=== PATIENT | female | born 1990 | race Caucasian/White ===

== ENCOUNTER 2024-10-30 09:10 | Emergency (ER) | payer SELFPAY ==
[~2024-10-30] VITALS: Ht 162.6 cm; Wt 78.2 kg
[2024-10-30] MEDS ORDERED: LAMOTRIGINE150 MG (09:43)
[2024-10-30] MEDS ORDERED: LEXAPRO10 MG PO (09:43)
[2024-10-30] MEDS ORDERED: PROPRANOLOL HCL10 MG PO (09:43)
[2024-10-30] MEDS: IBUPROFEN 200 MG TAB PO ONE (10:16)
[2024-10-30] MEDS: ACETAMINOPHEN 325 MG TAB PO ONE (10:17)
[2024-10-30] MEDS ORDERED: THERAFLU COLD1 EAC4 PO (10:38)
[2024-10-30] MEDS ORDERED: CEFDINIR300 MG PO (10:38)
[2024-10-30] MEDS ORDERED: IBUPROFEN600 MG PO (10:38)
[2024-10-30 10:56] VITALS: PULSE 81; RESP 18; TEMP 98.2; O2SAT 97
== END 2024-10-30 10:56 | disposition home or self-care (01) ==
LOC: FSED 09:23
DX: R30.0 Dysuria (principal); N39.0 Urinary tract infection, site not specified; J02.8 Acute pharyngitis due to other specified organisms; R05.9 Cough, unspecified; R51.9 Headache, unspecified; R53.81 Other malaise; Z11.52 Encounter for screening for COVID-19
CPT/HCPCS: 0223U; 83518; 87400; 99283